=== PATIENT | male | born 1950 | race Caucasian/White ===

== ENCOUNTER 2022-03-17 02:43 | Inpatient (IN) ==
[2022-03-17] MEDS ORDERED: CATAPRES TAB 0.2 MG ONE (02:59)
[2022-03-17] MEDS ORDERED: CATAPRES TAB 0.2 MG PO ONE (02:59)
[2022-03-17] MEDS ORDERED: NORVASC TAB 5 MG PO ONE (03:34)
[2022-03-17] MEDS ORDERED: APRESOLINE TAB 25 MG PO ONE (03:34)
[2022-03-17] MEDS ORDERED: NORVASC TAB 5 MG ONE (03:37)
[2022-03-17] MEDS ORDERED: LABETALOL HCL IVP ONE (04:47)
[2022-03-17] MEDS ORDERED: NS 1,000 ML IV 1,000 ML ONE (04:50)
[2022-03-17] MEDS ORDERED: NORMODYNE INJ 20 MG VIAL ONE (04:51)
[2022-03-17 04:52] LABS: BASOPHILS # (AUTO) 0.1 X10^3/uL (0.0-0.1); BASOPHILS % (AUTO) 0.7 % (0.2-1.0); EOSINOPHILS # (AUTO) 0.2 x10^3/uL (0.0-0.2); EOSINOPHILS % (AUTO) 1.5 % (0.9-2.9); HEMATOCRIT 35.4 % (42.0-54.0); HEMOGLOBIN 12.2 g/dL (13.5-18.0); LYMPHOCYTES # (AUTO) 1.9 X10^3/uL (1.3-2.9); LYMPHOCYTES % (AUTO) 17.2 % (21.0-51.0); MEAN CORPUSCULAR HEMOGLOBIN 29.9 pg (27.0-34.0); MEAN CORPUSCULAR HGB CONC 34.4 g/dL (33.0-35.0); MEAN CORPUSCULAR VOLUME 86.9 fL (80.0-100.0); MEAN PLATELET VOLUME 9.1 fL (7.4-11.0); MONOCYTES # (AUTO) 0.9 x10^3/uL (0.3-0.8); MONOCYTES % (AUTO) 8.3 % (0.0-13.0); NEUTROPHILS # (AUTO) 8.1 x10^3/uL (2.2-4.8); NEUTROPHILS % (AUTO) 72.3 % (42.0-75.0); RED BLOOD COUNT 4.07 X10^6/uL (4.7-6.0); WHITE BLOOD COUNT 11.2 X10^3/uL (3.6-10.0)
[2022-03-17] MEDS ORDERED: NORMODYNE INJ 100 MG VIAL ONE ×2 (04:58→05:03)
[2022-03-17] MEDS ORDERED: NS 250 ML IV 250 ML IV ONE (04:58)
[2022-03-17 05:02] LABS: ALANINE AMINOTRANSFERASE 14 Units/L (12-78); ALBUMIN 3.4 g/dL (3.4-5.0); ALKALINE PHOSPHATASE 84 Units/L (46-116); ASPARTATE AMINO TRANSFERASE 11 Units/L (15-37); BLOOD UREA NITROGEN 25 mg/dL (7-18); CALCIUM 9.2 mg/dL (8.5-10.1); CARBON DIOXIDE 32.5 mmol/L (21-32); CHLORIDE 105 mmol/L (98-107); COR NA(FOR HYPERGLY) 142 mmol/L (136-145); CREATININE 1.33 mg/dL (0.70-1.30); SODIUM 141 mmol/L (136-145); TOTAL PROTEIN 6.1 g/dL (6.4-8.2); eGFR NON BLACK RACES 56 (>60)
[2022-03-17] MEDS: NORMODYNE INJ 100 MG VIAL 250 MG in NS 250 ML IV 200 ML IV PRN ×2 (05:18→09:30)
[2022-03-17] MEDS: NS 1,000 ML IV 1,000 ML IV SCH ×2 (05:18→18:13)
--- NOTE | 2022-03-17 05:20 | DR.HTN ---
HPI Time Seen Time Seen by Provider: 03/17/22 04:30 Primary Care Physician Primary Care Physician: Kenneth Arteaga HPI Comment HPI Comment: Acccording to pt he has longstanding hx of hTN has been using multiple medications and bp usually runs around 160 systolic .However for the past week its been running over 180 systolic and today on checking it was 260 sytolic .pt became concerned and came for evaluation Complaints Chief Complaint Doctors Comments: bp running over 260 systolic Chief Complaint:: "BP gone crazy" Self Treatment fo Chief Complaint: "doubling up on BP meds per Dr. Arteaga" COVID-19 Coronavirus risk:travel/contact w/high risk person: No Has patient experienced Coronavirus symptoms: No Reviewed Nurses Notes Reviewed: Yes Source History Provided: Patient Mode of Arrival Mode of Arrival: Ambulatory Timing Onset of Chief Complaint: 03/14/22 Severity What was the maximum recorded B/P?: 260/118 Severity: Severe Context Circumstances: Spontaneous Onset Treatment of HTN Prior to Arrival: Taking meds as prescribed Associated Signs and Symptoms HTN Associated Signs and Symptoms: None PMH PMH Past Medical History: Yes Past Medical History: Diabetes and Hypertension Past Medical History Comment: Afib Past Surgical History: No Family History History of Family Medical Conditions: Yes Family Medical History Comment: "Heart Problems" Social History Alcohol Use: None Do you use any recreational Drugs:: No Lives With: Alone Lives Where: Home Travel Risk Coronavirus risk:travel/contact w/high risk person: No Has patient experienced Coronavirus symptoms: No Infectious screening In the last 2 months have you had wt loss of >10#?: NO Have you traveled outside the country in the last 6 months?: No Isolation: Standard ROS Review of Systems Constitutional: No Symptoms Reported Eyes: No Symptoms Reported ENTM: No Symptoms Reported Respiratoy: No Symptoms Reported Cardiovascular: No Symptoms Reported Gastrointestinal/Abdominal: No Symptoms Reported Genitourinary: No Symptoms Reported Neurological: No Symptoms Reported Musculoskeletal: Back Pain PE Vital Signs Vitals: Temperature 98.2 F Pulse Rate 58 Respiratory Rate 20 Blood Pressure [Left Arm] 156/83 Blood Pressure 177/84 O2 Sat by Pulse Oximetry 95 General Limitations: No Limitations General Appearance: Alert and In No Apparent Distress Head Head Exam: Normal Inspection, Atraumatic and Normocephalic Eyes Eye exam: Normal Appearance, PERRL and EOMI ENT ENT Exam: Normal Exam, Normal Oropharynx and Mucous Membranes Moist Neck Neck Exam: Normal Inspection Respiratory Respiratory Exam: Normal Lung Sounds Bilat Respiratory Exam: Bilateral: Clear to Auscultation Abdominal Exam Abdominal Exam: Normal Inspection, Normal Bowel Sounds and Soft Extremities Extremities Exam: Normal Inspection and Full ROM Neurologic Neurological Exam: Alert, Oriented X3, CN II-XII Intact and Reflexes Normal Psychiatric Psychiatric Exam: Normal Affect and Normal Mood MDM Differential Diagnosis Differential Diagnosis: Hypertensive urgency COURSE Treatment Treatment: clonidine,hydralazine ,amlodipine IV lebatalol ROR Labs Reviewed Laboratory Results Reviewed?: Yes Result Diagrams: 03/17/22 04:40 03/17/22 04:40 Laboratory: WBC 11.2 X10^3/uL (3.6-10.0) H 03/17/22 04:40 RBC 4.07 X10^6/uL (4.7-6.0) L 03/17/22 04:40 Hgb 12.2 g/dL (13.5-18.0) L 03/17/22 04:40 Hct 35.4 % (42.0-54.0) L 03/17/22 04:40 MCV 86.9 fL (80.0-100.0) 03/17/22 04:40 MCH 29.9 pg (27.0-34.0) 03/17/22 04:40 MCHC 34.4 g/dL (33.0-35.0) 03/17/22 04:40 RDW 14.0 % (11.6-16.5) 03/17/22 04:40 Plt Count 167 X10^3/uL (150.0-450.0) 03/17/22 04:40 MPV 9.1 fL (7.4-11.0) 03/17/22 04:40 Neut % (Auto) 72.3 % (42.0-75.0) 03/17/22 04:40 Lymph % (Auto) 17.2 % (21.0-51.0) L 03/17/22 04:40 [place] % (Auto) 8.3 % (0.0-13.0) 03/17/22 04:40 Eos % (Auto) 1.5 % (0.9-2.9) 03/17/22 04:40 Baso % (Auto) 0.7 % (0.2-1.0) 03/17/22 04:40 Neut # (Auto) 8.1 x10^3/uL (2.2-4.8) H 03/17/22 04:40 Lymph # (Auto) 1.9 X10^3/uL (1.3-2.9) 03/17/22 04:40 [place] # (Auto) 0.9 x10^3/uL (0.3-0.8) H 03/17/22 04:40 Eos # (Auto) 0.2 x10^3/uL (0.0-0.2) 03/17/22 04:40 Baso # (Auto) 0.1 X10^3/uL (0.0-0.1) 03/17/22 04:40 Absolute Nucleated RBC 0.0 /100WBC 03/17/22 04:40 Sodium 141 mmol/L (136-145) 03/17/22 04:40 Corrected Sodium 142 mmol/L (136-145) 03/17/22 04:40 Potassium 3.8 mmol/L (3.5-5.1) 03/17/22 04:40 Chloride 105 mmol/L (98-107) 03/17/22 04:40 Carbon Dioxide 32.5 mmol/L (21-32) H 03/17/22 04:40 BUN 25 mg/dL (7-18) H 03/17/22 04:40 Creatinine 1.33 mg/dL (0.70-1.30) H 03/17/22 04:40 Est GFR (MDRD) Af Amer > 60 (>60) 03/17/22 04:40 Est GFR (MDRD) Non-Af 56 (>60) L 03/17/22 04:40 Glucose 151 mg/dL (65-99) H 03/17/22 04:40 Calcium 9.2 mg/dL (8.5-10.1) 03/17/22 04:40 Corrected Calcium TNP 03/17/22 04:40 Total Bilirubin 0.40 mg/dL (0.2-1.0) 03/17/22 04:40 AST 11 Units/L (15-37) L 03/17/22 04:40 ALT 14 Units/L (12-78) 03/17/22 04:40 Alkaline Phosphatase 84 Units/L (46-116) 03/17/22 04:40 Creatine Kinase 26 Units/L (39-308) L 03/17/22 04:40 CK-MB (CK-2) 1.0 ng/mL (0-4.0) 03/17/22 04:40 CK/CKMB % Calc 3.9 % (<4) 03/17/22 04:40 Troponin I High Sens 29.1 ng/L (4.0-60.0) 03/17/22 04:40 Total Protein 6.1 g/dL (6.4-8.2) L 03/17/22 04:40 Albumin 3.4 g/dL (3.4-5.0) 03/17/22 04:40 Globulin 2.7 g/dL (2.5-4.5) 03/17/22 04:40 Albumin/Globulin Ratio 1.3 Ratio (1.1-2.1) 03/17/22 04:40 Opioid Opioid Risk Tool Age (Rah box if 16-45): No History of Preadolescent Sexual Abuse: No Total: 0 Total Score Risk Category: Low Risk Copyright: [facility] predicting aberrant behaviors Diagnosis Discharge Problem: Hypertensive urgency, Atrial fibrillation Back pain, chronic Qualifiers: Back pain location: low back pain Back pain laterality: unspecified Sciatica presence: unspecified whether sciatica present Qualified Code(s): M54.50 - Low back pain, unspecified Hypothyroidism Qualifiers: Hypothyroidism type: unspecified Qualified Code(s): E03.9 - Hypothyroidism, unspecified Benign prostatic hyperplasia Qualifiers: Lower urinary tract symptom presence: symptoms present Lower urinary tract symptom detail: unspecified Qualified Code(s): N40.1 - Benign prostatic hyperplasia with lower urinary tract symptoms Hyperlipidemia Qualifiers: Hyperlipidemia type: mixed hyperlipidemia Qualified Code(s): E78.2 - Mixed hyperlipidemia Instructions Forms: Precautions for COVID19 [facility] Social Distancing ADDITIONAL NOTES Additional Notes Additional Notes: pts bp slowly dropped to 189 sytolic on labetalol drip.Spoke with Dr Vasquez to admit patient to ICU
[2022-03-17 05:47] LABS: CKMB % 3.9 % (<4)
[2022-03-17 08:10] VITALS: BMI 32.4
[2022-03-17] MEDS ORDERED: TAMSULOSIN HCL 0.4 MG PO SCH (09:00)
[2022-03-17] MEDS ORDERED: SYNTHROID 100 mcg TAB PO SCH (09:00)
[2022-03-17] MEDS ORDERED: FLOMAX PO SCH (09:00)
[2022-03-17] MEDS ORDERED: CARDENE IV PREMIX* 40 MG/200 ML 40 MG/200 ML PIGGYBACK IV PRN (09:09)
[2022-03-17] MEDS: APRESOLINE TAB 25 MG PO SCH ×2 (14:15→22:00)
[2022-03-17] MEDS: CYMBALTA PO SCH (14:16)
[2022-03-17] MEDS: CARDIZEM CD 240 MG 24-HR PO SCH (14:16)
[2022-03-17] MEDS: CATAPRES TAB 0.3 MG PO SCH ×2 (14:16→22:00)
[2022-03-17] MEDS: PROTONIX TAB 40 MG PO SCH (14:17)
[2022-03-17] MEDS: NEURONTIN CAP 300 MG PO SCH ×2 (14:17→22:00)
[2022-03-17] MEDS: MAXZIDE 37.5/25 MG PO SCH (14:39)
[2022-03-17] MEDS: GLUCOPHAGE PO SCH (17:05)
[2022-03-17] MEDS: NORCO 10/325 TAB PO PRN (18:12)
[2022-03-17] MEDS: COREG TAB 25 MG PO SCH (20:27)
[2022-03-17] MEDS: DESYREL PO SCH (20:27)
[2022-03-17] MEDS: SINGULAIR TAB 10 MG PO SCH (20:28)
[2022-03-17] MEDS: XANAX PO SCH (20:28)
[2022-03-17] MEDS: ZOCOR TAB 40 MG PO SCH (20:28)
[2022-03-17] MEDS ORDERED: PATIENT'S HOME MEDICATION (Simvastatin 40 MG Tab) PO SCH (21:00)
[2022-03-18] MEDS: NEURONTIN CAP 300 MG PO SCH ×3 (05:02→21:19)
[2022-03-18] MEDS: CATAPRES TAB 0.3 MG PO SCH ×3 (05:02→21:19)
[2022-03-18] MEDS: APRESOLINE TAB 25 MG PO SCH ×3 (05:02→21:19)
[2022-03-18 05:20] LABS: BASOPHILS # (AUTO) 0.1 X10^3/uL (0.0-0.1); BASOPHILS % (AUTO) 0.6 % (0.2-1.0); EOSINOPHILS # (AUTO) 0.1 x10^3/uL (0.0-0.2); EOSINOPHILS % (AUTO) 1.2 % (0.9-2.9); HEMATOCRIT 34.2 % (42.0-54.0); HEMOGLOBIN 12.2 g/dL (13.5-18.0); LYMPHOCYTES % (AUTO) 17.2 % (21.0-51.0); MEAN CORPUSCULAR HEMOGLOBIN 30.9 pg (27.0-34.0); MEAN CORPUSCULAR HGB CONC 35.6 g/dL (33.0-35.0); MEAN CORPUSCULAR VOLUME 86.7 fL (80.0-100.0); MEAN PLATELET VOLUME 9.5 fL (7.4-11.0); MONOCYTES # (AUTO) 0.8 x10^3/uL (0.3-0.8); NEUTROPHILS # (AUTO) 8.5 x10^3/uL (2.2-4.8); RED BLOOD COUNT 3.94 X10^6/uL (4.7-6.0); WHITE BLOOD COUNT 11.4 X10^3/uL (3.6-10.0)
[2022-03-18 05:36] LABS: ALANINE AMINOTRANSFERASE 14 Units/L (12-78); ALBUMIN 3.2 g/dL (3.4-5.0); ALKALINE PHOSPHATASE 59 Units/L (46-116); ASPARTATE AMINO TRANSFERASE 12 Units/L (15-37); BLOOD UREA NITROGEN 22 mg/dL (7-18); CARBON DIOXIDE 29.9 mmol/L (21-32); CHLORIDE 106 mmol/L (98-107); COR CA(FOR HYPOALB) 9.6 mg/dL (8.5-10.1); COR NA(FOR HYPERGLY) 142 mmol/L (136-145); CREATININE 1.35 mg/dL (0.70-1.30); SODIUM 141 mmol/L (136-145); TOTAL PROTEIN 5.8 g/dL (6.4-8.2); eGFR NON BLACK RACES 55 (>60)
[2022-03-18] MEDS: SYNTHROID 150 mcg TAB PO SCH (05:51)
[2022-03-18] MEDS: GLUCOPHAGE PO SCH ×2 (06:01→17:24)
[2022-03-18] MEDS: CARDIZEM CD 240 MG 24-HR PO SCH (08:52)
[2022-03-18] MEDS: COREG TAB 25 MG PO SCH ×2 (08:52→21:16)
[2022-03-18] MEDS: CYMBALTA PO SCH (08:52)
[2022-03-18] MEDS: XANAX PO SCH ×2 (08:53→21:18)
[2022-03-18] MEDS: PROTONIX TAB 40 MG PO SCH (08:53)
[2022-03-18] MEDS: MAXZIDE 37.5/25 MG PO SCH (08:53)
[2022-03-18] MEDS: DIOVAN TAB 160 MG PO SCH (08:53)
[2022-03-18 09:40] LABS: CKMB % 3.1 % (<4); CREATINE KINASE MB 1.6 ng/mL (0-4.0)
[2022-03-18] MEDS: NS 1,000 ML IV 1,000 ML IV SCH ×2 (10:12→21:20)
--- NOTE | 2022-03-18 16:04 | CT ---
HISTORYrenal artery stenosisSTUDYCTA abdomen pelvis without and with IV contrastCOMPARISONNoneTECHNIQUEMultiple axial images of the abdomen and pelvis are obtained prior to and following the administration of IV contrast. 3D reconstructions were performed utilizing radial maximum intensity projection imaging. Dose reduction techniques including Automated Exposure Control (AEC) and adjustment of mA and kV were utilized.FINDINGSBibasilar atelectasis is seen in the lungs with possible CHF. There may be mild pulmonary edema. Nonobstructing renal stones are seen. The stones on the left are tiny but there is a 9 mm stone in the right kidney. There is no hydronephrosis or ureteral stone. Phleboliths are seen in the pelvis. Bladder appears normal. There is a probable benign cyst in the superior pole of the left kidney measuring 3.7 cm in diameter. It has a small focus of wall calcification. In the medial aspect of the left kidney there is a 2.9 cm exophytic lesion. It has no appreciable enhancement following contrast administration and is probably a proteinaceous cyst.Abdominal aorta is normal in size with diffuse atherosclerotic calcifications. There are mild stenoses of the origins of the SMA and celiac axis. Calcified plaque in the origin of the right renal artery causes only mild stenosis. There are 2 left renal arteries. The main renal artery is located at the same level as on the right. It has calcified plaque causing mild stenosis. The accessory renal artery on the left is located more superiorly and is difficult to evaluate given its small size. There is likely [id number] stenosis at its origin. No poststenotic dilation is seen. MARCUS enhances normally.Two hypodensities are seen in the inferior aspect of the spleen. These measure 1.3 cm and 0.8 cm. They do not enhance and could be small cysts or hamartoma. No adrenal nodules. Gallbladder and pancreas appear normal. Normal appendix. No free pelvic fluid. Prostate gland appears normal in size.IMPRESSIONMild stenoses are seen in the origins of the renal arteries. There may be more [id number] stenosis in the origin of the left accessory renal artery that is located more superiorly. It is not well evaluated due to its small size.Nonobstructing renal stones are seen with probable benign cysts.Electronically signed by: Luke Gonzalez (March 18, 2022 16:03:23)
--- NOTE | 2022-03-18 19:45 | DR.H&P ---
H&P - History & Physical for Day of: H&P Date: 03/17/22 - Chief Complaint Chief Complaint: ELEVATED BLOOD PRESSURE - History of Present Illness History of Present Illness: IS A 70 YEAR OLD PATIENT OF OURS. HE PRESENTED TO THE HOSPITAL WITH COMPLAINTS OF ELEVATED BLOOD PRESSURES FOR SEVERAL DAYS. HE HAS A PMH OF HTN, DM II, AND ATRIAL FIBRILLATION. HE REPORTS THAT HIS BLOOD PRESSURES HAVE BEEN OVER 200/100 FOR THE PAST SEVERAL HOURS. HE CURRENTLY TAKES COREG 25MG PO BID, VALSARTAN 320MG PO DAILY, HYDRALAZINE 100MG PO TID, DILTIAZEM 240MG PO DAILY, AND CLONIDINE 0.3MG PO BID. HE REPORTS PERSISTENT ELEVATED BLOOD PRESSURES DESPITE COMPLIANCE WITH MEDICATIONS. ON ARRIVAL TO THE ER, HIS VITALS WERE: 98.2-59-20-96%-260/118. LABS WERE OBTAINED. WBC 11.2, RBC 4.07, HGB 12.2, HCT 35.4, PLT COUNT 167, SODIUM 141, POTASSIUM 3.8, CHLORIDE 108, CARBON DIOXIDE 32.5, BUN 25, CREATININE 1.33, GLUCOSE 151, CALCIUM 9.2, AST 11, ALT 14, ALK PHOS 84, CREATINE KINASE 26, TOTAL PROTEIN 6.1, ALBUMIN 3.4. COVID-19 NEGATIVE. IN THE ER, HE WAS GIVEN CLONIDINE 0.2MG PO X 1, HYDRALAZINE 100MG PO X 1, NORVASC 10MG PO X 1 DOSE. BLOOD PRESSURE EVENTUALLY DECREASED TO THE 190s/80s. HE WAS ADMITTED TO THE HOSPITAL INPATIENT STATUS FOR UNCONTROLLED HYPERTENSION. HE WAS STARTED ON MAXZIDE 37.5/25MG PO DAILY, COREG 25MG PO BID, VALSARTAN 320MG PO DAILY, HYDRALAZINE 100MG PO TID, DILTIAZEM 240MG PO DAILY, AND CLONIDINE 0.3MG PO BID, A LABETALOL DRIP, XANAX 1MG PO BID, CYMBALTA 30MG PO DAILY, GABAPENTIN 300G PO TID, NORCO 10/325MG PO QID PRN, SYNTHROID 150MG PO DAILY, GLUCOPHAGE 850MG PO BID, SINGULARI 10MG PO HS, PROTONIX 40MG PO DAILY, ZOCOR 40MG PO HS, TAMSULOSIN 0.4MG PO HS, TRAZODONE 300MG PO HS, VALSARTAN 320MG PO DAILY. WE PLAN TO OBTAIN AN ABDOMINAL CTA WITH ATTENTION TO RENAL ARTERY TO RULE OUT STENOSIS OR OTHER FINDINGS THAT MAY BE THE CAUSE OF ELEVATED BLOOD PRESSURE. OTHERWISE, WE PLAN TO FOLLOW-UP WITH AM LABS AND CONTINUE TO MONITOR. TIME SPENT ON CLINICAL ASSESSMENT, REVIEWING LABS AND IMAGING, DECISION MAKING, AND DOCUMENTATION GREATER THAN 75 MINUTES. - Past Medical History Past Medical History: Hypertension, Diabetes Additional Medical History: A-FIB - Social History Does patient currently use any type of tobacco product: No Have you used tobacco products in the last 12 months: No Type of Tobacco Use: None Alcohol Use: None - Medications Home Medications: No Known Drug Allergies Allergy (Verified 09/17/18 20:03) CONTINUE taking the following medications alprazolam 1 mg PO BID 03/17/22 [History] clonidine HCl 0.3 mg PO TID 03/17/22 [History] diltiazem HCl 240 mg PO DAILY 03/17/22 [History] duloxetine 30 mg PO DAILY 03/17/22 [History] gabapentin 300 mg PO TID 03/17/22 [History] hydralazine 100 mg PO TID 03/17/22 [History] hydrocodone-acetaminophen 1 tab PO QID PRN 03/17/22 [History] levothyroxine 150 mcg PO DAILY 03/17/22 [History] metformin 850 mg PO BID 03/17/22 [History] montelukast 10 mg PO DAILY 03/17/22 [History] pantoprazole 40 mg PO DAILY 03/17/22 [History] simvastatin 40 mg PO HS 03/17/22 [History] tamsulosin 0.4 mg PO HS 03/17/22 [History] trazodone 300 mg PO HS 03/17/22 [History] - Review of Systems Constitutional: Weakness Eyes: No Symptoms Reported ENT: No Symptoms Reported Respiratory: No Symptoms Reported Cardiovascular: Chest Pain Gastrointestinal: No Symptoms Reported Genitourinary: No Symptoms Reported Musculoskeletal: No Symptoms Reported Skin: No Symptoms Reported Neurological: Weakness - Physical Exam Vital Signs: Temperature 97.7 F Pulse Rate 55 Respiratory Rate 22 Blood Pressure [Left Arm] 156/83 Blood Pressure 159/69 O2 Sat by Pulse Oximetry 93 Oriented: Normal Eyes: Normal Ear: Normal Nose: Normal Throat: Normal Respiratory: Diminished Throughout Cardiovascular: Normal, Irregular : Normal Auscultation: Bowel Sounds: Normal Palpation: Normal Tenderness: Normal Skin: Normal Musculoskeletal: Normal Psychiatric: Normal Mood Description: Calm Affect: Normal Speech Pattern: Clear - Assessment/Plan (1) Hypertensive urgency Status: Acute Plan: ADMIT, MAXZIDE 37.5/25MG PO DAILY, COREG 25MG PO BID, VALSARTAN 320MG PO DAILY, HYDRALAZINE 100MG PO TID, DILTIAZEM 240MG PO DAILY, AND CLONIDINE 0.3MG PO BID, A LABETALOL DRIP, XANAX 1MG PO BID, CYMBALTA 30MG PO DAILY, GABAPENTIN 300G PO TID, NORCO 10/325MG PO QID PRN, SYNTHROID 150MG PO DAILY, GLUCOPHAGE 850MG PO BID, SINGULARI 10MG PO HS, PROTONIX 40MG PO DAILY, ZOCOR 40MG PO HS, TAMSULOSIN 0.4MG PO HS, TRAZODONE 300MG PO HS, VALSARTAN 320MG PO DAILY. OBTAIN RENAL CTA (2) Atrial fibrillation Qualifiers: Atrial fibrillation type: unspecified Qualified Code(s): I48.91 - Unspecified atrial fibrillation Status: Chronic (3) Hypothyroidism Qualifiers: Hypothyroidism type: acquired Qualified Code(s): E03.9 - Hypothyroidism, unspecified Status: Chronic (4) Benign prostatic hyperplasia Qualifiers: Lower urinary tract symptom presence: symptoms present Lower urinary tract symptom detail: unspecified Qualified Code(s): N40.1 - Benign prostatic hyperplasia with lower urinary tract symptoms Status: Chronic (5) Hyperlipidemia Qualifiers: Hyperlipidemia type: mixed hyperlipidemia Qualified Code(s): E78.2 - Mixed hyperlipidemia Status: Chronic - Allergies Allergies/Adverse Reactions: Allergies Allergy/AdvReac Type Severity Reaction Status Date / Time No Known Drug Allergies Allergy Verified 09/17/18 20:03
[2022-03-18] MEDS: DESYREL PO SCH (21:17)
[2022-03-18] MEDS: SINGULAIR TAB 10 MG PO SCH (21:18)
[2022-03-18] MEDS: FLOMAX PO SCH (21:18)
[2022-03-18] MEDS: ZOCOR TAB 40 MG PO SCH (21:18)
[2022-03-19 05:04] LABS: BASOPHILS # (AUTO) 0.1 X10^3/uL (0.0-0.1); BASOPHILS % (AUTO) 0.7 % (0.2-1.0); EOSINOPHILS # (AUTO) 0.3 x10^3/uL (0.0-0.2); EOSINOPHILS % (AUTO) 2.3 % (0.9-2.9); HEMATOCRIT 39.1 % (42.0-54.0); HEMOGLOBIN 13.4 g/dL (13.5-18.0); LYMPHOCYTES # (AUTO) 1.7 X10^3/uL (1.3-2.9); LYMPHOCYTES % (AUTO) 14.2 % (21.0-51.0); MEAN CORPUSCULAR HEMOGLOBIN 29.8 pg (27.0-34.0); MEAN CORPUSCULAR HGB CONC 34.2 g/dL (33.0-35.0); MEAN CORPUSCULAR VOLUME 87.3 fL (80.0-100.0); MEAN PLATELET VOLUME 9.4 fL (7.4-11.0); MONOCYTES # (AUTO) 0.8 x10^3/uL (0.3-0.8); MONOCYTES % (AUTO) 6.4 % (0.0-13.0); NEUTROPHILS # (AUTO) 9.2 x10^3/uL (2.2-4.8); NEUTROPHILS % (AUTO) 76.4 % (42.0-75.0); RED BLOOD COUNT 4.48 X10^6/uL (4.7-6.0); RED CELL DISTRIBUTION WIDTH 13.9 % (11.6-16.5)
[2022-03-19 05:08] LABS: ALANINE AMINOTRANSFERASE 13 Units/L (12-78); ALBUMIN 3.4 g/dL (3.4-5.0); ALKALINE PHOSPHATASE 65 Units/L (46-116); ASPARTATE AMINO TRANSFERASE 14 Units/L (15-37); BLOOD UREA NITROGEN 24 mg/dL (7-18); CALCIUM 9.3 mg/dL (8.5-10.1); CARBON DIOXIDE 27.6 mmol/L (21-32); CHLORIDE 105 mmol/L (98-107); COR NA(FOR HYPERGLY) 142 mmol/L (136-145); CREATININE 1.51 mg/dL (0.70-1.30); SODIUM 140 mmol/L (136-145); TOTAL PROTEIN 6.5 g/dL (6.4-8.2); eGFR NON BLACK RACES 48 (>60)
[2022-03-19] MEDS: APRESOLINE TAB 25 MG PO SCH ×3 (06:08→21:22)
[2022-03-19] MEDS: CATAPRES TAB 0.3 MG PO SCH ×3 (06:08→21:22)
[2022-03-19] MEDS: NEURONTIN CAP 300 MG PO SCH ×3 (06:09→21:22)
[2022-03-19] MEDS: SYNTHROID 150 mcg TAB PO SCH (06:09)
[2022-03-19] MEDS: GLUCOPHAGE PO SCH ×2 (06:09→16:41)
[2022-03-19] MEDS: CARDIZEM CD 240 MG 24-HR PO SCH (08:06)
[2022-03-19] MEDS: CYMBALTA PO SCH (08:07)
[2022-03-19] MEDS: ECOTRIN TAB 325 MG PO SCH (08:07)
[2022-03-19] MEDS: DIOVAN TAB 160 MG PO SCH (08:07)
[2022-03-19] MEDS: COREG TAB 25 MG PO SCH ×2 (08:07→20:03)
[2022-03-19] MEDS: PROTONIX TAB 40 MG PO SCH (08:07)
[2022-03-19] MEDS: MAXZIDE 37.5/25 MG PO SCH (08:07)
[2022-03-19] MEDS: XANAX PO SCH ×2 (08:08→20:04)
[2022-03-19] MEDS: NS 1,000 ML IV 1,000 ML IV SCH ×2 (11:23→23:41)
[2022-03-19] MEDS: SINGULAIR TAB 10 MG PO SCH (20:03)
[2022-03-19] MEDS: DESYREL PO SCH (20:04)
[2022-03-19] MEDS: FLOMAX PO SCH (20:04)
[2022-03-19] MEDS: ZOCOR TAB 40 MG PO SCH (20:05)
[2022-03-19] MEDS: NORCO 10/325 TAB PO PRN (20:38)
[2022-03-20 04:57] LABS: BASOPHILS # (AUTO) 0.1 X10^3/uL (0.0-0.1); BASOPHILS % (AUTO) 0.8 % (0.2-1.0); EOSINOPHILS # (AUTO) 0.3 x10^3/uL (0.0-0.2); EOSINOPHILS % (AUTO) 2.7 % (0.9-2.9); HEMATOCRIT 40.5 % (42.0-54.0); HEMOGLOBIN 13.7 g/dL (13.5-18.0); LYMPHOCYTES % (AUTO) 16.8 % (21.0-51.0); MEAN CORPUSCULAR HEMOGLOBIN 29.8 pg (27.0-34.0); MEAN CORPUSCULAR HGB CONC 33.8 g/dL (33.0-35.0); MEAN CORPUSCULAR VOLUME 88.1 fL (80.0-100.0); MEAN PLATELET VOLUME 9.6 fL (7.4-11.0); MONOCYTES # (AUTO) 0.7 x10^3/uL (0.3-0.8); MONOCYTES % (AUTO) 5.8 % (0.0-13.0); NEUTROPHILS # (AUTO) 8.8 x10^3/uL (2.2-4.8); NEUTROPHILS % (AUTO) 73.9 % (42.0-75.0); RED BLOOD COUNT 4.59 X10^6/uL (4.7-6.0); RED CELL DISTRIBUTION WIDTH 14.2 % (11.6-16.5); WHITE BLOOD COUNT 11.9 X10^3/uL (3.6-10.0)
[2022-03-20 05:09] LABS: ALANINE AMINOTRANSFERASE 22 Units/L (12-78); ALBUMIN 3.6 g/dL (3.4-5.0); ALKALINE PHOSPHATASE 73 Units/L (46-116); ASPARTATE AMINO TRANSFERASE 13 Units/L (15-37); BLOOD UREA NITROGEN 25 mg/dL (7-18); CALCIUM 9.5 mg/dL (8.5-10.1); CARBON DIOXIDE 30.2 mmol/L (21-32); CHLORIDE 106 mmol/L (98-107); COR NA(FOR HYPERGLY) 142 mmol/L (136-145); CREATININE 1.57 mg/dL (0.70-1.30); SODIUM 141 mmol/L (136-145); TOTAL PROTEIN 6.8 g/dL (6.4-8.2); eGFR NON BLACK RACES 46 (>60)
[2022-03-20] MEDS: NEURONTIN CAP 300 MG PO SCH ×3 (05:11→21:45)
[2022-03-20] MEDS: APRESOLINE TAB 25 MG PO SCH ×3 (05:11→21:45)
[2022-03-20] MEDS: CATAPRES TAB 0.3 MG PO SCH ×3 (05:11→21:45)
[2022-03-20] MEDS: SYNTHROID 150 mcg TAB PO SCH (05:38)
[2022-03-20] MEDS: GLUCOPHAGE PO SCH ×2 (06:04→17:20)
[2022-03-20] MEDS: COREG TAB 25 MG PO SCH ×2 (08:01→20:16)
[2022-03-20] MEDS: DIOVAN TAB 160 MG PO SCH (08:02)
[2022-03-20] MEDS: XANAX PO SCH ×2 (08:02→20:17)
[2022-03-20] MEDS: PROTONIX TAB 40 MG PO SCH (08:02)
[2022-03-20] MEDS: MAXZIDE 37.5/25 MG PO SCH (08:03)
[2022-03-20] MEDS: CYMBALTA PO SCH (08:03)
[2022-03-20] MEDS: CARDIZEM CD 240 MG 24-HR PO SCH (08:03)
[2022-03-20] MEDS: ECOTRIN TAB 325 MG PO SCH (08:03)
[2022-03-20] MEDS: NORVASC TAB 5 MG PO SCH ×2 (11:19→20:16)
--- NOTE | 2022-03-20 11:51 | DR.CARD ---
Cardiology Consult Consultation for Day of: Date: 03/20/22 Chief Complaint Chief Complaint: Hypertension Allergies Allergies Allergy/AdvReac Type Severity Reaction Status Date / Time No Known Drug Allergies Allergy Verified 09/17/18 20:03 History of Present Illness History of Present Illness: Patient is a71yo M with PMHx resistant hypertension, DM2, HLD, PAF, CKD. Presented to [facility] ED approximately 3 days ago for elevated blood pressures. He historically has had poorly controlled blood pressures, but that day he reported pressures staying in the 200 systolic range. He denies weakness, numbness, change in sensation, headaches. Denies chest discomfort, changes in breathing, pnd, orthopnea, or pedal edema. He reports afib symptoms approximately once a week, describes them as a "skip." Denies dizziness or syncope. Denies previous cardiac workup. Past Medical History Past Medical History: Diabetes, Hypertension and Renal Disease Additional Medical History: PAF diagnosed "along time ago by Dr. Kulkarni" Social History Does patient currently use any type of tobacco product: No Have you used tobacco products in the last 12 months: No Type of Tobacco Use: None Alcohol Use: None Medications Home Medications: No Known Drug Allergies Allergy (Verified 09/17/18 20:03) Home medications: alprazolam 1 mg PO BID 03/17/22 [History] clonidine HCl 0.3 mg PO TID 03/17/22 [History] diltiazem HCl 240 mg PO DAILY 03/17/22 [History] duloxetine 30 mg PO DAILY 03/17/22 [History] gabapentin 300 mg PO TID 03/17/22 [History] hydralazine 100 mg PO TID 03/17/22 [History] hydrocodone-acetaminophen 1 tab PO QID PRN 03/17/22 [History] levothyroxine 150 mcg PO DAILY 03/17/22 [History] metformin 850 mg PO BID 03/17/22 [History] montelukast 10 mg PO DAILY 03/17/22 [History] pantoprazole 40 mg PO DAILY 03/17/22 [History] simvastatin 40 mg PO HS 03/17/22 [History] tamsulosin 0.4 mg PO HS 03/17/22 [History] trazodone 300 mg PO HS 03/17/22 [History] Carvedilol 25mg BID, Valsartan 160mg BID Physical Exam Vital Signs: Temperature 98.2 F Pulse Rate 58 Respiratory Rate 20 Blood Pressure [Left Arm] 156/83 Blood Pressure 177/84 O2 Sat by Pulse Oximetry 95 Oriented: Normal, Time, Person and Place Eyes: Normal; negative Discharge and Redness Ear: Normal Respiratory: Clear Throughout Cardiovascular: Normal (regular rate, rhythm, no m/r/g); negative Murmur Auscultation: Bowel Sounds: Normal Palpation: Normal Tenderness: Normal Skin: Normal (for age) Musculoskeletal: Normal Psychiatric: Normal Mood Description: Calm Affect: Normal Speech Pattern: Clear and Appropriate Medical Decision Making Rationale: Consult is for HTN EKG Results: RBBB Labs reviewed: Yes Significant abnormal labs: see labs, pertinent labs include CR 1.57, GFR 46, negative trops, negative CKMD Radiology Reviewed: Yes (CTA abdomen: Mild stenosis origin R/L renal arteries. Possible mild-moderate stenosis of accessory L renal artery (main L renal artery only mild stenosis)) Significant Abnormal Xray: see above Plan Plan: 1. Resistant hypertension a. asymptomatic b. continue coreg 25mg BID, valsartan 160mg BID, hydralazine 100mg TID, maxzide 37.5/25 c. change diltiazem to amlodipine 5mg BID d. follow up outpatient clinic 2 weeks with BP review 2. Bradycardia a. asymptomatic - rates upper 50s b. changing diltiazem to amlodipine c. FU outpatient 2 weeks 3. PAF a. diagnosed "along time ago" b. skips approximately once a week c. No AC therapy. d. No documented afib inpatient e. Will consider outpatient HM and readdress AC therapy 4. Renal artery stenosis a. Per CTA abdomen only mild stenosis origin of R/L renal arteries. Accessory L renal artery may have mild-moderate stenosis though poorly visualized b. FU outpatient clinic 5. CKD a. most recent cr 1.57/gfr 46 b. continue to monitor SEE ADDENDUM.
[2022-03-20] MEDS: NS 1,000 ML IV 1,000 ML IV SCH (14:02)
--- NOTE | 2022-03-20 17:54 | PCM.PROG ---
Progress Note - Progress Note for Day of Date of Exam: 03/18/22 - Subjective Subjective: IS A 71 YEAR OLD PATIENT OF OURS WHO WAS ADMITTED INPATIENT STATUS FOR TREATMENT OF HYPERTENSIVE URGENCY. HE HAS A PMH OF A-FIB, HYPOTHYROIDISM, BPH, AND HYPERLIPIDEMIA. HIS BLOOD PRESSURE HAS BEEN STABLE THROUGHOUT THE NIGHT SINCE NEW MEDICATIONS WERE ADDED, HOWEVER, HIS PULSE HAS PERSISTENTLY BEEN IN THE 40s-50s. HE DENIES CURRENT COMPLAINTS. ON EXAMINATION, HE IS NOTED TO BE BRADYCARDIC WITH HR IN THE 50s. RHYTHM IS REGULAR. BILATERAL LUNGS ARE NOTED WITH DIMINISHED LUNG SOUNDS THROUGHOUT. ABDOMEN IS ROUND, SOFT, AND NON-TENDER WITH NORMAL BOWEL SOUNDS NOTED IN ALL QUADRANTS. NO UPPER OR LOWER EXTREMITY EDEMA NOTED. HIS VITALS THIS MORNING ARE: 97.6-51-14-94%-129/57. LABS WERE OBTAINED. WBC 11.4, RBC 3.94, HGB 12.2, HCT 34.2, SODIUM 141, POTASSIUM 3.8, CHLORIDE 106, BUN 22, CREATININE 1.35, GLUCOSE 131, CALCIUM 9.0, AST 12, ALT 14, ALK PHOS 59, TOTAL PROTEIN 5.8, ALBUMIN 3.2. CARDIAC ENZYMES WITHIN NORMAL LIMITS. HE IS CURRENTLY RECEIVING ON MAXZIDE 37.5/25MG PO DAILY, COREG 25MG PO BID, VALSARTAN 320MG PO DAILY, HYDRALAZINE 100MG PO TID, DILTIAZEM 240MG PO DAILY, AND CLONIDINE 0.3MG PO BID, XANAX 1MG PO BID, CYMBALTA 30MG PO DAILY, GABAPENTIN 300G PO TID, NORCO 10/325MG PO QID PRN, SYNTHROID 150MG PO DAILY, GLUCOPHAGE 850MG PO BID, SINGULARI 10MG PO HS, PROTONIX 40MG PO DAILY, ZOCOR 40MG PO HS, TAMSULOSIN 0.4MG PO HS, TRAZODONE 300MG PO HS, AND VALSARTAN 320MG PO DAILY. HE IS SCHEDULED FOR AN ABDOMEN/RENAL CTA TODAY TO ASSESS FOR RENAL ARTERY STENOSIS. OTHERWISE, WE WILL CONTINUE WITH CURRENT PLAN OF CARE TODAY. WE PLAN TO FOLLOW-UP WITH AM LABS AND CONTINUE TO MONITOR. TIME SPENT ON CLINICAL ASSESSMENT, REVIEWING LABS AND IMAGING, DECISION MAKING, AND DOCUMENTATION GREATER THAN 45 MINUTES. - Past Medical Family Social History Past Med/Fam/Surg Hx: No changes since H&P Allergies: Allergies No Known Drug Allergies Allergy (Verified 09/17/18 20:03) - Review of Systems ROS: No change since H&P - Vital Signs and I&O's Vital Signs: Temperature 97.9 F Pulse Rate 62 Respiratory Rate 20 Blood Pressure [Left Arm] 156/83 Blood Pressure 180/79 O2 Sat by Pulse Oximetry 92 Intake and Output: Intake & Output 03/18/22 03/19/22 03/20/22 03/21/22 11:59 11:59 11:59 11:59 Intake Total 2705 / 2705 2003 1690 / 1690 Output Total 1700 / 1700 2150 / 2150 1050 / 1050 700 / 700 Balance 1005 / 1005 -146 / -146 640 / 640 -700 / -700 - Physical Exam Oriented: Normal, Time, Person, Place Eyes: Normal. negative: Discharge, Redness Ear: Normal Nose: Normal Throat: Normal Respiratory: Generalized, Diminished Cardiovascular: Bradycardia. negative: Murmur : Normal Auscultation: Bowel Sounds: Normal Palpation: Normal Tenderness: Normal Skin: Normal Musculoskeletal: Normal Psychiatric: Normal Mood Description: Calm Affect: Normal Speech Pattern: Clear, Appropriate - Laboratory and Diagnostics Result Diagrams: 03/20/22 04:15 03/20/22 04:15 Labs: Laboratory WBC 11.9 X10^3/uL (3.6-10.0) H 03/20/22 04:15 RBC 4.59 X10^6/uL (4.7-6.0) L 03/20/22 04:15 Hgb 13.7 g/dL (13.5-18.0) 03/20/22 04:15 Hct 40.5 % (42.0-54.0) L 03/20/22 04:15 MCV 88.1 fL (80.0-100.0) 03/20/22 04:15 MCH 29.8 pg (27.0-34.0) 03/20/22 04:15 MCHC 33.8 g/dL (33.0-35.0) 03/20/22 04:15 RDW 14.2 % (11.6-16.5) 03/20/22 04:15 Plt Count 197 X10^3/uL (150.0-450.0) 03/20/22 04:15 MPV 9.6 fL (7.4-11.0) 03/20/22 04:15 Neut % (Auto) 73.9 % (42.0-75.0) 03/20/22 04:15 Lymph % (Auto) 16.8 % (21.0-51.0) L 03/20/22 04:15 Chambers % (Auto) 5.8 % (0.0-13.0) 03/20/22 04:15 Eos % (Auto) 2.7 % (0.9-2.9) 03/20/22 04:15 Baso % (Auto) 0.8 % (0.2-1.0) 03/20/22 04:15 Neut # (Auto) 8.8 x10^3/uL (2.2-4.8) H 03/20/22 04:15 Lymph # (Auto) 2.0 X10^3/uL (1.3-2.9) 03/20/22 04:15 Chambers # (Auto) 0.7 x10^3/uL (0.3-0.8) 03/20/22 04:15 Eos # (Auto) 0.3 x10^3/uL (0.0-0.2) H 03/20/22 04:15 Baso # (Auto) 0.1 X10^3/uL (0.0-0.1) 03/20/22 04:15 Absolute Nucleated RBC 0.0 /100WBC 03/20/22 04:15 Sodium 141 mmol/L (136-145) 03/20/22 04:15 Corrected Sodium 142 mmol/L (136-145) 03/20/22 04:15 Potassium 4.1 mmol/L (3.5-5.1) 03/20/22 04:15 Chloride 106 mmol/L (98-107) 03/20/22 04:15 Carbon Dioxide 30.2 mmol/L (21-32) 03/20/22 04:15 BUN 25 mg/dL (7-18) H 03/20/22 04:15 Creatinine 1.57 mg/dL (0.70-1.30) H 03/20/22 04:15 Est GFR (MDRD) Af Amer 56 (>60) L 03/20/22 04:15 Est GFR (MDRD) Non-Af 46 (>60) L 03/20/22 04:15 Glucose 145 mg/dL (65-99) H 03/20/22 04:15 POC Glucose (mg/dL) 166 mg/dL (65-99) H 03/20/22 16:06 Calcium 9.5 mg/dL (8.5-10.1) 03/20/22 04:15 Corrected Calcium TNP 03/20/22 04:15 Total Bilirubin 0.40 mg/dL (0.2-1.0) 03/20/22 04:15 AST 13 Units/L (15-37) L 03/20/22 04:15 ALT 22 Units/L (12-78) 03/20/22 04:15 Alkaline Phosphatase 73 Units/L (46-116) 03/20/22 04:15 Creatine Kinase 51 Units/L (39-308) 03/18/22 03:40 CK-MB (CK-2) 1.6 ng/mL (0-4.0) 03/18/22 03:40 CK/CKMB % Calc 3.1 % (<4) 03/18/22 03:40 Troponin I High Sens 29.8 ng/L (4.0-60.0) 03/18/22 03:40 Total Protein 6.8 g/dL (6.4-8.2) 03/20/22 04:15 Albumin 3.6 g/dL (3.4-5.0) 03/20/22 04:15 Globulin 3.2 g/dL (2.5-4.5) 03/20/22 04:15 Albumin/Globulin Ratio 1.1 Ratio (1.1-2.1) 03/20/22 04:15 SARS-CoV-2 (PCR) Negative (NEGATIVE) 03/17/22 06:26 - Plan (1) Hypertensive urgency Status: Acute Plan: MAXZIDE 37.5/25MG PO DAILY, COREG 25MG PO BID, VALSARTAN 320MG PO DAILY, HYDRALAZINE 100MG PO TID, DILTIAZEM 240MG PO DAILY, AND CLONIDINE 0.3MG PO BID, XANAX 1MG PO BID, CYMBALTA 30MG PO DAILY, GABAPENTIN 300G PO TID, NORCO 10/325MG PO QID PRN, SYNTHROID 150MG PO DAILY, GLUCOPHAGE 850MG PO BID, SINGULARI 10MG PO HS, PROTONIX 40MG PO DAILY, ZOCOR 40MG PO HS, TAMSULOSIN 0.4MG PO HS, TRAZODONE 300MG PO HS, VALSARTAN 320MG PO DAILY. OBTAIN RENAL CTA TODAY (2) Atrial fibrillation Status: Chronic Qualifiers: Atrial fibrillation type: unspecified Qualified Code(s): I48.91 - Unspecified atrial fibrillation (3) Hypothyroidism Status: Chronic Qualifiers: Hypothyroidism type: acquired Qualified Code(s): E03.9 - Hypothyroidism, unspecified (4) Benign prostatic hyperplasia Status: Chronic Qualifiers: Lower urinary tract symptom presence: symptoms present Lower urinary tract symptom detail: unspecified Qualified Code(s): N40.1 - Benign prostatic hyperplasia with lower urinary tract symptoms (5) Hyperlipidemia Status: Chronic Qualifiers: Hyperlipidemia type: mixed hyperlipidemia Qualified Code(s): E78.2 - Mixed hyperlipidemia
--- NOTE | 2022-03-20 18:08 | PCM.PROG ---
Progress Note - Progress Note for Day of Date of Exam: 03/19/22 - Subjective Subjective: IS A 71 YEAR OLD PATIENT OF OURS WHO WAS ADMITTED INPATIENT STATUS FOR TREATMENT OF HYPERTENSIVE URGENCY. HE HAS A PMH OF A-FIB, HYPOTHYROIDISM, BPH, AND HYPERLIPIDEMIA. HE HAS HAD SEVERAL ELEVATED BLOOD PRESSURES THROUGHOUT THE NIGHT. AT 0600, BP WAS 221/91. HE COMPLAINS OF HEADACHE THIS MORNING. ON EXAMINATION, HE IS NOTED TO BE BRADYCARDIC WITH HR IN THE 50s. RHYTHM IS REGULAR. BILATERAL LUNGS ARE NOTED WITH DIMINISHED LUNG SOUNDS THROUGHOUT. ABDOMEN IS ROUND, SOFT, AND NON-TENDER WITH NORMAL BOWEL SOUNDS NOTED IN ALL QUADRANTS. NO UPPER OR LOWER EXTREMITY EDEMA NOTED. HIS VITALS THIS MORNING ARE: 98.1-53-15-95%-130/60. LABS WERE OBTAINED. WBC 12.0, RBC 4.48, HGB 13.4, HCT 39.1, SODIUM 140, POTASSIUM 3.9, BUN 24, CREATININE 1.51, GLUCOSE 186, CALCIUM 9.3, CHLORIDE 105, BUN 24, CREATININE 1.51, GLUCOSE 186, CALCIUM 9.3, AST 14, ALT 13, ALK PHOS 65, TOTAL PROTEIN 6.5, ALBUMIN 3.4. A RENAL CTA WAS DONE YESTERDAY. IT REVEALED: Mild stenoses are seen in the origins of the renal arteries. There may be more [id number] stenosis in the origin of the left accessory renal artery that is located more superiorly. It is not well evaluated due to its small size. Nonobstructing renal stones are seen with probable benign cysts. HE IS CURRENTLY RECEIVING ON MAXZIDE 37.5/25MG PO DAILY, COREG 25MG PO BID, VALSARTAN 320MG PO DAILY, HYDRALAZINE 100MG PO TID, DILTIAZEM 240MG PO DAILY, AND CLONIDINE 0.3MG PO BID, XANAX 1MG PO BID, CYMBALTA 30MG PO DAILY, GABAPENTIN 300G PO TID, NORCO 10/325MG PO QID PRN, SYNTHROID 150MG PO DAILY, GLUCOPHAGE 850MG PO BID, SINGULAIR 10MG PO HS, PROTONIX 40MG PO DAILY, ZOCOR 40MG PO HS, TAMSULOSIN 0.4MG PO HS, TRAZODONE 300MG PO HS, AND VALSARTAN 320MG PO DAILY. WE WILL DISCONTINUE HIS IV FLUIDS TODAY. WE WILL ADD ECOTRIN 325MG PO DAILY. OTHERWISE, WE WILL CONTINUE WITH CURRENT PLAN OF CARE TODAY. WE WILL CONSULT , INSULATOR HELPER DUE TO MILD TO MODERATE RENAL ARTERY STENOSIS. WE PLAN TO FOLLOW-UP WITH AM LABS AND CONTINUE TO MONITOR. TIME SPENT ON CLINICAL ASSESSMENT, REVIEWING LABS AND IMAGING, DECISION MAKING, AND DOC UMENTATION GREATER THAN 45 MINUTES. - Past Medical Family Social History Past Med/Fam/Surg Hx: No changes since H&P Allergies: Allergies No Known Drug Allergies Allergy (Verified 09/17/18 20:03) - Review of Systems ROS: No change since H&P - Vital Signs and I&O's Vital Signs: Temperature 97.9 F Pulse Rate 62 Respiratory Rate 20 Blood Pressure [Left Arm] 156/83 Blood Pressure 180/79 O2 Sat by Pulse Oximetry 92 Intake and Output: Intake & Output 03/18/22 03/19/22 03/20/22 03/21/22 11:59 11:59 11:59 11:59 Intake Total 2705 / 2705 2003 1690 / 1690 Output Total 1700 / 1700 2150 / 2150 1050 / 1050 700 / 700 Balance 1005 / 1005 -146 / -146 640 / 640 -700 / -700 - Physical Exam Oriented: Normal, Time, Person, Place Eyes: Normal. negative: Discharge, Redness Ear: Normal Nose: Normal Throat: Normal Respiratory: Generalized, Diminished Cardiovascular: Bradycardia. negative: Murmur : Normal Auscultation: Bowel Sounds: Normal Palpation: Normal Tenderness: Normal Skin: Normal Musculoskeletal: Normal Psychiatric: Normal Mood Description: Calm Affect: Normal Speech Pattern: Clear, Appropriate - Laboratory and Diagnostics Result Diagrams: 03/20/22 04:15 03/20/22 04:15 Labs: Laboratory WBC 11.9 X10^3/uL (3.6-10.0) H 03/20/22 04:15 RBC 4.59 X10^6/uL (4.7-6.0) L 03/20/22 04:15 Hgb 13.7 g/dL (13.5-18.0) 03/20/22 04:15 Hct 40.5 % (42.0-54.0) L 03/20/22 04:15 MCV 88.1 fL (80.0-100.0) 03/20/22 04:15 MCH 29.8 pg (27.0-34.0) 03/20/22 04:15 MCHC 33.8 g/dL (33.0-35.0) 03/20/22 04:15 RDW 14.2 % (11.6-16.5) 03/20/22 04:15 Plt Count 197 X10^3/uL (150.0-450.0) 03/20/22 04:15 MPV 9.6 fL (7.4-11.0) 03/20/22 04:15 Neut % (Auto) 73.9 % (42.0-75.0) 03/20/22 04:15 Lymph % (Auto) 16.8 % (21.0-51.0) L 03/20/22 04:15 [place] % (Auto) 5.8 % (0.0-13.0) 03/20/22 04:15 Eos % (Auto) 2.7 % (0.9-2.9) 03/20/22 04:15 Baso % (Auto) 0.8 % (0.2-1.0) 03/20/22 04:15 Neut # (Auto) 8.8 x10^3/uL (2.2-4.8) H 03/20/22 04:15 Lymph # (Auto) 2.0 X10^3/uL (1.3-2.9) 03/20/22 04:15 [place] # (Auto) 0.7 x10^3/uL (0.3-0.8) 03/20/22 04:15 Eos # (Auto) 0.3 x10^3/uL (0.0-0.2) H 03/20/22 04:15 Baso # (Auto) 0.1 X10^3/uL (0.0-0.1) 03/20/22 04:15 Absolute Nucleated RBC 0.0 /100WBC 03/20/22 04:15 Sodium 141 mmol/L (136-145) 03/20/22 04:15 Corrected Sodium 142 mmol/L (136-145) 03/20/22 04:15 Potassium 4.1 mmol/L (3.5-5.1) 03/20/22 04:15 Chloride 106 mmol/L (98-107) 03/20/22 04:15 Carbon Dioxide 30.2 mmol/L (21-32) 03/20/22 04:15 BUN 25 mg/dL (7-18) H 03/20/22 04:15 Creatinine 1.57 mg/dL (0.70-1.30) H 03/20/22 04:15 Est GFR (MDRD) Af Amer 56 (>60) L 03/20/22 04:15 Est GFR (MDRD) Non-Af 46 (>60) L 03/20/22 04:15 Glucose 145 mg/dL (65-99) H 03/20/22 04:15 POC Glucose (mg/dL) 166 mg/dL (65-99) H 03/20/22 16:06 Calcium 9.5 mg/dL (8.5-10.1) 03/20/22 04:15 Corrected Calcium TNP 03/20/22 04:15 Total Bilirubin 0.40 mg/dL (0.2-1.0) 03/20/22 04:15 AST 13 Units/L (15-37) L 03/20/22 04:15 ALT 22 Units/L (12-78) 03/20/22 04:15 Alkaline Phosphatase 73 Units/L (46-116) 03/20/22 04:15 Creatine Kinase 51 Units/L (39-308) 03/18/22 03:40 CK-MB (CK-2) 1.6 ng/mL (0-4.0) 03/18/22 03:40 CK/CKMB % Calc 3.1 % (<4) 03/18/22 03:40 Troponin I High Sens 29.8 ng/L (4.0-60.0) 03/18/22 03:40 Total Protein 6.8 g/dL (6.4-8.2) 03/20/22 04:15 Albumin 3.6 g/dL (3.4-5.0) 03/20/22 04:15 Globulin 3.2 g/dL (2.5-4.5) 03/20/22 04:15 Albumin/Globulin Ratio 1.1 Ratio (1.1-2.1) 03/20/22 04:15 SARS-CoV-2 (PCR) Negative (NEGATIVE) 03/17/22 06:26 - Plan (1) Hypertensive urgency Status: Acute Plan: MAXZIDE 37.5/25MG PO DAILY, COREG 25MG PO BID, VALSARTAN 320MG PO DAILY, HYDRALAZINE 100MG PO TID, DILTIAZEM 240MG PO DAILY, AND CLONIDINE 0.3MG PO BID, XANAX 1MG PO BID, CYMBALTA 30MG PO DAILY, GABAPENTIN 300G PO TID, NORCO 10/325MG PO QID PRN, SYNTHROID 150MG PO DAILY, GLUCOPHAGE 850MG PO BID, SINGULAIR 10MG PO HS, ECOTRIN 325MG PO DAILY, PROTONIX 40MG PO DAILY, ZOCOR 40MG PO HS, TAMSULOSIN 0.4MG PO HS, TRAZODONE 300MG PO HS, VALSARTAN 320MG PO DAILY. OBTAIN RENAL CTA TODAY (2) Renal artery stenosis Status: Acute Plan: CONSULT (3) Atrial fibrillation Status: Chronic Qualifiers: Atrial fibrillation type: unspecified Qualified Code(s): I48.91 - Unspecified atrial fibrillation (4) Hypothyroidism Status: Chronic Qualifiers: Hypothyroidism type: acquired Qualified Code(s): E03.9 - Hypothyroidism, unspecified (5) Benign prostatic hyperplasia Status: Chronic Qualifiers: Lower urinary tract symptom presence: symptoms present Lower urinary tract symptom detail: unspecified Qualified Code(s): N40.1 - Benign prostatic hyperplasia with lower urinary tract symptoms (6) Hyperlipidemia Status: Chronic Qualifiers: Hyperlipidemia type: mixed hyperlipidemia Qualified Code(s): E78.2 - Mixed hyperlipidemia
[2022-03-20] MEDS: FLOMAX PO SCH (20:16)
[2022-03-20] MEDS: DESYREL PO SCH (20:16)
[2022-03-20] MEDS: SINGULAIR TAB 10 MG PO SCH (20:16)
[2022-03-20] MEDS: ZOCOR TAB 40 MG PO SCH (20:17)
[2022-03-21] MEDS: NS 1,000 ML IV 1,000 ML IV SCH (01:04)
[2022-03-21 04:51] LABS: BASOPHILS # (AUTO) 0.1 X10^3/uL (0.0-0.1); BASOPHILS % (AUTO) 0.6 % (0.2-1.0); EOSINOPHILS # (AUTO) 0.3 x10^3/uL (0.0-0.2); EOSINOPHILS % (AUTO) 2.1 % (0.9-2.9); HEMATOCRIT 37.8 % (42.0-54.0); LYMPHOCYTES % (AUTO) 15.9 % (21.0-51.0); MEAN CORPUSCULAR HGB CONC 34.3 g/dL (33.0-35.0); MEAN CORPUSCULAR VOLUME 87.3 fL (80.0-100.0); MEAN PLATELET VOLUME 9.6 fL (7.4-11.0); MONOCYTES # (AUTO) 0.8 x10^3/uL (0.3-0.8); MONOCYTES % (AUTO) 6.7 % (0.0-13.0); NEUTROPHILS # (AUTO) 9.5 x10^3/uL (2.2-4.8); NEUTROPHILS % (AUTO) 74.7 % (42.0-75.0); RED BLOOD COUNT 4.33 X10^6/uL (4.7-6.0); RED CELL DISTRIBUTION WIDTH 13.9 % (11.6-16.5); WHITE BLOOD COUNT 12.7 X10^3/uL (3.6-10.0)
[2022-03-21 04:58] LABS: ALANINE AMINOTRANSFERASE 14 Units/L (12-78); ALBUMIN 3.2 g/dL (3.4-5.0); ALKALINE PHOSPHATASE 65 Units/L (46-116); ASPARTATE AMINO TRANSFERASE 12 Units/L (15-37); BLOOD UREA NITROGEN 27 mg/dL (7-18); CALCIUM 9.4 mg/dL (8.5-10.1); CARBON DIOXIDE 30.2 mmol/L (21-32); CHLORIDE 106 mmol/L (98-107); COR NA(FOR HYPERGLY) 142 mmol/L (136-145); CREATININE 1.45 mg/dL (0.70-1.30); SODIUM 140 mmol/L (136-145); TOTAL PROTEIN 6.2 g/dL (6.4-8.2); eGFR NON BLACK RACES 51 (>60)
[2022-03-21] MEDS: CATAPRES TAB 0.3 MG PO SCH (05:03)
[2022-03-21] MEDS: APRESOLINE TAB 25 MG PO SCH (05:03)
[2022-03-21] MEDS: NEURONTIN CAP 300 MG PO SCH (05:03)
[2022-03-21] MEDS: GLUCOPHAGE PO SCH (06:06)
[2022-03-21] MEDS: SYNTHROID 150 mcg TAB PO SCH (06:06)
[2022-03-21] MEDS: ECOTRIN TAB 325 MG PO SCH (08:40)
[2022-03-21] MEDS: NORVASC TAB 5 MG PO SCH (08:40)
[2022-03-21] MEDS: MAXZIDE 37.5/25 MG PO SCH (08:40)
[2022-03-21] MEDS: DIOVAN TAB 160 MG PO SCH (08:41)
[2022-03-21] MEDS: PROTONIX TAB 40 MG PO SCH (08:41)
[2022-03-21] MEDS: XANAX PO SCH (08:41)
[2022-03-21] MEDS: CYMBALTA PO SCH (08:42)
[2022-03-21] MEDS: COREG TAB 25 MG PO SCH (08:42)
--- NOTE | 2022-03-21 10:03 | PCM.PROG ---
Progress Note - Progress Note for Day of Date of Exam: 03/20/22 - Subjective Subjective: A 71 YEAR OLD PATIENT OF OURS WHO WAS ADMITTED INPATIENT STATUS FOR TREATMENT OF HYPERTENSIVE URGENCY. HE HAS A PMH OF A-FIB, HYPOTHYROIDISM, BPH, AND HYPERLIPIDEMIA. HE HAS HAD SEVERAL ELEVATED BLOOD PRESSURES THROUGHOUT THE NIGHT AND THIS MORNING. HE COMPLAINS OF HEADACHE THIS MORNING. ON EXAMINATION, HE IS NOTED TO BE BRADYCARDIC WITH HR IN THE 50s. RHYTHM IS REGULAR. BILATERAL LUNGS ARE NOTED WITH DIMINISHED LUNG SOUNDS THROUGHOUT. ABDOMEN IS ROUND, SOFT, AND NON-TENDER WITH NORMAL BOWEL SOUNDS NOTED IN ALL QUADRANTS. NO UPPER OR LOWER EXTREMITY EDEMA NOTED. HIS VITALS THIS MORNING ARE: 97.9-56-18-93%-200/41. LABS WERE OBTAINED. WBC 11.9, RBC 4.59, HGB 13.7, HCT 40.5, SODIUM 141, POTASSIUM 4.1, BUN 25, CREATININE 1.57, GLUCOSE 145, CALCIUM 9.5, TOTAL BILI 0.40, AST 13, ALT 22, ALK PHOS 73, TOTAL PROTEIN 6.8, ALBUMIN 3.6. A RENAL CTA WAS DONE ON FRIDAY. IT REVEALED: Mild stenoses are seen in the origins of the renal arteries. There may be more [id number] stenosis in the origin of the left accessory renal artery that is located more superiorly. It is not well evaluated due to its small size. Nonobstructing renal stones are seen with probable benign cysts. HE IS CURRENTLY RECEIVING ON MAXZIDE 37.5/25MG PO DAILY, ECOTRIN 325MG PO DAILY, COREG 25MG PO BID, VALSARTAN 320MG PO DAILY, HYDRALAZINE 100MG PO TID, DILTIAZEM 240MG PO DAILY, AND CLONIDINE 0.3M G PO BID, XANAX 1MG PO BID, CYMBALTA 30MG PO DAILY, GABAPENTIN 300G PO TID, NORCO 10/325MG PO QID PRN, SYNTHROID 150MG PO DAILY, GLUCOPHAGE 850MG PO BID, SINGULAIR 10MG PO HS, PROTONIX 40MG PO DAILY, ZOCOR 40MG PO HS, TAMSULOSIN 0.4MG PO HS, TRAZODONE 300MG PO HS, AND VALSARTAN 320MG PO DAILY. CONSULTED WITH HIM TODAY AND DISCONTINUED THE CARDIZEM AND ADDED NORVASC 5MG PO BID. HE PLANS TO FOLLOW-UP WITH PATIENT IN THE OFFICE FOLLOWING DISCHARGED FOR FURTHER WORK-UP. OTHERWISE, WE WILL CONTINUE WITH CURRENT PLAN OF CARE TODAY. WE PLAN TO FOLLOW-UP WITH AM LABS AND CONTINUE TO MONITOR. TIME SPENT ON CLINICAL ASSESSMENT, REVIEWING LABS AND IMAGING, DECISION MAKING, AND DOCUMENTATION GREATER THAN 45 MINUTES. - Past Medical Family Social History Past Med/Fam/Surg Hx: No changes since H&P Allergies: Allergies No Known Drug Allergies Allergy (Verified 09/17/18 20:03) - Review of Systems ROS: No change since H&P - Vital Signs and I&O's Vital Signs: Temperature 98 F Pulse Rate 74 Respiratory Rate 31 Blood Pressure [Left Arm] 156/83 Blood Pressure 152/72 O2 Sat by Pulse Oximetry 91 Intake and Output: Intake & Output 03/18/22 03/19/22 03/20/22 03/21/22 11:59 11:59 11:59 11:59 Intake Total 2705 / 2705 2003 / 2003 1690 / 1690 940 / 940 Output Total 1700 / 1700 2150 / 2150 1050 / 1050 1500 / 1500 Balance 1005 / 1005 -146 / -146 640 / 640 -560 / -560 - Physical Exam Oriented: Normal, Time, Person, Place Eyes: Normal. negative: Discharge, Redness Ear: Normal Nose: Normal Throat: Normal Respiratory: Generalized, Diminished Cardiovascular: Bradycardia. negative: Murmur : Normal Auscultation: Bowel Sounds: Normal Tenderness: Normal Skin: Normal Musculoskeletal: Normal Psychiatric: Normal Mood Description: Calm Affect: Normal Speech Pattern: Clear - Laboratory and Diagnostics Result Diagrams: 03/21/22 04:00 03/21/22 04:00 Labs: Laboratory WBC 12.7 X10^3/uL (3.6-10.0) H 03/21/22 04:00 RBC 4.33 X10^6/uL (4.7-6.0) L 03/21/22 04:00 Hgb 13.0 g/dL (13.5-18.0) L 03/21/22 04:00 Hct 37.8 % (42.0-54.0) L 03/21/22 04:00 MCV 87.3 fL (80.0-100.0) 03/21/22 04:00 MCH 30.0 pg (27.0-34.0) 03/21/22 04:00 MCHC 34.3 g/dL (33.0-35.0) 03/21/22 04:00 RDW 13.9 % (11.6-16.5) 03/21/22 04:00 Plt Count 184 X10^3/uL (150.0-450.0) 03/21/22 04:00 MPV 9.6 fL (7.4-11.0) 03/21/22 04:00 Neut % (Auto) 74.7 % (42.0-75.0) 03/21/22 04:00 Lymph % (Auto) 15.9 % (21.0-51.0) L 03/21/22 04:00 [place] % (Auto) 6.7 % (0.0-13.0) 03/21/22 04:00 Eos % (Auto) 2.1 % (0.9-2.9) 03/21/22 04:00 Baso % (Auto) 0.6 % (0.2-1.0) 03/21/22 04:00 Neut # (Auto) 9.5 x10^3/uL (2.2-4.8) H 03/21/22 04:00 Lymph # (Auto) 2.0 X10^3/uL (1.3-2.9) 03/21/22 04:00 [place] # (Auto) 0.8 x10^3/uL (0.3-0.8) 03/21/22 04:00 Eos # (Auto) 0.3 x10^3/uL (0.0-0.2) H 03/21/22 04:00 Baso # (Auto) 0.1 X10^3/uL (0.0-0.1) 03/21/22 04:00 Absolute Nucleated RBC 0.1 /100WBC 03/21/22 04:00 Sodium 140 mmol/L (136-145) 03/21/22 04:00 Corrected Sodium 142 mmol/L (136-145) 03/21/22 04:00 Potassium 3.8 mmol/L (3.5-5.1) 03/21/22 04:00 Chloride 106 mmol/L (98-107) 03/21/22 04:00 Carbon Dioxide 30.2 mmol/L (21-32) 03/21/22 04:00 BUN 27 mg/dL (7-18) H 03/21/22 04:00 Creatinine 1.45 mg/dL (0.70-1.30) H 03/21/22 04:00 Est GFR (MDRD) Af Amer > 60 (>60) 03/21/22 04:00 Est GFR (MDRD) Non-Af 51 (>60) L 03/21/22 04:00 Glucose 179 mg/dL (65-99) H 03/21/22 04:00 POC Glucose (mg/dL) 130 mg/dL (65-99) H 03/20/22 20:22 Calcium 9.4 mg/dL (8.5-10.1) 03/21/22 04:00 Corrected Calcium 10.0 mg/dL (8.5-10.1) 03/21/22 04:00 Total Bilirubin 0.40 mg/dL (0.2-1.0) 03/21/22 04:00 AST 12 Units/L (15-37) L 03/21/22 04:00 ALT 14 Units/L (12-78) 03/21/22 04:00 Alkaline Phosphatase 65 Units/L (46-116) 03/21/22 04:00 Creatine Kinase 51 Units/L (39-308) 03/18/22 03:40 CK-MB (CK-2) 1.6 ng/mL (0-4.0) 03/18/22 03:40 CK/CKMB % Calc 3.1 % (<4) 03/18/22 03:40 Troponin I High Sens 29.8 ng/L (4.0-60.0) 03/18/22 03:40 Total Protein 6.2 g/dL (6.4-8.2) L 03/21/22 04:00 Albumin 3.2 g/dL (3.4-5.0) L 03/21/22 04:00 Globulin 3.0 g/dL (2.5-4.5) 03/21/22 04:00 Albumin/Globulin Ratio 1.1 Ratio (1.1-2.1) 03/21/22 04:00 SARS-CoV-2 (PCR) Negative (NEGATIVE) 03/17/22 06:26 - Plan (1) Hypertensive urgency Status: Acute Plan: MAXZIDE 37.5/25MG PO DAILY, COREG 25MG PO BID, VALSARTAN 320MG PO DAILY, HYDRALAZINE 100MG PO TID, DILTIAZEM 240MG PO DAILY, AND CLONIDINE 0.3MG PO BID, XANAX 1MG PO BID, CYMBALTA 30MG PO DAILY, GABAPENTIN 300G PO TID, NORCO 10/325MG PO QID PRN, SYNTHROID 150MG PO DAILY, GLUCOPHAGE 850MG PO BID, SINGULAIR 10MG PO HS, ECOTRIN 325MG PO DAILY, PROTONIX 40MG PO DAILY, ZOCOR 40MG PO HS, TAMSULOSIN 0.4MG PO HS, TRAZODONE 300MG PO HS, VALSARTAN 320MG PO DAILY. OBTAIN RENAL CTA TODAY (2) Renal artery stenosis Status: Acute Plan: CONSULT (3) Atrial fibrillation Status: Chronic Qualifiers: Atrial fibrillation type: unspecified Qualified Code(s): I48.91 - Unspecified atrial fibrillation (4) Hypothyroidism Status: Chronic Qualifiers: Hypothyroidism type: acquired Qualified Code(s): E03.9 - Hypothyroidism, unspecified (5) Benign prostatic hyperplasia Status: Chronic Qualifiers: Lower urinary tract symptom presence: symptoms present Lower urinary tract symptom detail: unspecified Qualified Code(s): N40.1 - Benign prostatic hyperplasia with lower urinary tract symptoms (6) Hyperlipidemia Status: Chronic Qualifiers: Hyperlipidemia type: mixed hyperlipidemia Qualified Code(s): E78.2 - Mixed hyperlipidemia
[2022-03-21 12:18] VITALS: BP 185/85
== END 2022-03-21 12:30 | disposition home or self-care (01) | DRG 305 ==
LOC: ER 02:45 → ICU 07:05
PROVIDERS: ADMIT Obstetrics & Gynecology Obstetrics; ATTEND Internal Medicine
DX: I48.91 Unspecified atrial fibrillation; N40.1 Benign prostatic hyperplasia with lower urinary tract symptoms; E03.8 Other specified hypothyroidism; E78.2 Mixed hyperlipidemia; I10 Essential (primary) hypertension; M54.50 Low back pain, unspecified; R51.9 Headache, unspecified; I16.0 Hypertensive urgency; I70.1 Atherosclerosis of renal artery; Z20.822 Contact with and (suspected) exposure to COVID-19; E11.65 Type 2 diabetes mellitus with hyperglycemia